=== PATIENT | male | born 1970 | race Caucasian/White ===

== ENCOUNTER 2020-11-15 15:49 | Inpatient (IN) | payer OTHER ==
[~2020-11-15] VITALS: Ht 170.2 cm; Wt 72.1 kg
[2020-11-16] MEDS ORDERED: CIPRO500 MG PO (11:51)
[2020-11-16] MEDS ORDERED: ULTRACET PO (11:53)
[2020-11-16] MEDS ORDERED: PROTONIX40 MG PO (11:53)
== END 2020-11-16 18:55 | disposition home or self-care (01) | DRG 343 ==
LOC: ER 15:49 → SURH 20:49 → SEC-K 20:49 → SURH 11-16 00:03
PROVIDERS: ADMIT Surgery; ATTEND Surgery
PROC: 0DTJ0ZZ Resection of Appendix, Open Approach (ICD-10-PCS; principal; 2020-11-15 21:00)
DX: K35.890 Other acute appendicitis without perforation or gangrene (principal); Z20.828 Contact with and (suspected) exposure to other viral communicable diseases